=== PATIENT | female | born 1995 | race African-American/Black ===

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

== ENCOUNTER 2017-03-02 15:41 | Emergency (ER) | payer MEDICAID ==
[~2017-03-02] VITALS: Ht 170.2 cm; Wt 60.0 kg
[2017-03-02 15:41] VITALS: BP 124/78; PULSE 85; RESP 15; TEMP 98.7; O2SAT 98
[~2017-03-02 15:41] MED LIST: POLY10O LEFT EYE
[2017-03-02] MEDS ORDERED: CEPH-460 PO (16:25)
--- NOTE | 2017-03-02 16:25 | PD ---
HPI Chief Complaint: Complaint Time Seen by Provider: 16:20 Travel History International Travel<30 days: No Contact w/Intl Traveler<30days: No Traveled to known affect area: No History of Present Illness HPI 21-year-old female presents emergency Department with complaint of urinary frequency, hesitancy, urgency 3 days. Denies dysuria. Denies vaginal discharge, odor, itch. Denies abdominal pain, low back pain, fever, vomiting. Last menstrual period February 16. Has not taken any medications or drainage from his to alleviate her symptoms. No known aggravating or relieving factors. Symptoms are mild in severity. No known allergies. Has no other medical complaints. No other modifying factors or associated signs and symptoms. PFSH Past Medical History ?: Not Social History Alcohol Use: No Tobacco Use: No Allergies-Medications (Allergen,Severity, Reaction): Coded Allergies: No Known Allergies (Unverified , 03/02/17) Reported Meds & Prescriptions Reported Meds & Active Scripts Active Keflex (Cephalexin) 500 Mg Cap 500 Mg PO Q12H 5 Days Review of Systems Except as stated in HPI: all other systems reviewed are Neg Physical Exam Narrative GENERAL: Well-nourished, well-developed black female patient, in no acute distress; afebrile, nontoxic-appearing SKIN: Warm and dry. No rash. HEAD: Atraumatic. Normocephalic. EYES: Pupils equal and round. No scleral icterus. No injection or drainage. ENT: Mucosa pink and moist. NECK: Trachea midline. CARDIOVASCULAR: Regular rate. RESPIRATORY: No accessory muscle use. GASTROINTESTINAL: Abdomen soft, non-tender, nondistended. Hepatic and splenic margins not palpable. Bowel sounds are active 4 quadrants. Bladder with tenderness on palpation; nondistended. MUSCULOSKELETAL: No obvious deformities. No clubbing. No cyanosis. No edema. BACK: No CVA tenderness NEUROLOGICAL: Awake and alert. Oriented 3. No obvious cranial nerve deficits. Motor grossly within normal limits. Normal speech. Moves all extremities. 5/5 strength to all extremities. PSYCHIATRIC: Appropriate mood and affect; insight and judgment normal. Data Data Last Documented VS Vital Signs Date Time Temp Pulse Resp B/P (MAP) Pulse Ox O2 Delivery O2 Flow Rate FiO2 03/02/17 15:41 98.7 85 15 124/78 (93) 98 Orders Orders Urinalysis - C+S If Indicated (03/02/17 16:00) Ed Urine Pregnancytest Poc (03/02/17 16:00) Urine Culture (03/02/17 16:00) Labs Laboratory Tests Test 03/02/17 16:00 Urine Color LIGHT-YELLOW Urine Turbidity CLEAR Urine pH 7.0 Urine Specific [place] 1.005 Urine Protein NEG mg/dL Urine Glucose (UA) NEG mg/dL Urine Ketones NEG mg/dL Urine Occult Blood SMALL Urine Nitrite NEG Urine Bilirubin NEG Urine Urobilinogen LESS THAN 2.0 MG/DL Urine Leukocyte Esterase LARGE Urine RBC 1 /hpf Urine WBC 36 /hpf Urine Squamous Epithelial Cells 1 /hpf Urine Transitional Epithelial Cells 1 /hpf Urine Bacteria RARE /hpf Microscopic Urinalysis Comment CULTURE INDICATED MDM Medical Decision Making Medical Screen Exam Complete: Yes Emergency Medical Condition: Yes Medical Record Reviewed: Yes Differential Diagnosis Urinary tract infection, cystitis, pyelonephritis Narrative Course 21-year-old female with urinary symptoms 3 days. No CVA tenderness. Patient is afebrile and nontoxic appearing. Denies fever, vomiting. UPT negative. Urinalysis ordered. 1641: Urinalysis with signs of infection. Keflex prescribed for home. Instructed patient to follow up with primary care provider. Patient verbalizes understanding and agreement with treatment plan. Patient is medically cleared and stable for discharge. Discussed reasons to return to the emergency department. Patient agrees with treatment plan. The patients vital signs are stable and the patient is stable for outpatient follow-up and treatment. Patient discharged home, stable and in no acute distress. Diagnosis Primary Impression: UTI (urinary tract infection) Qualified Codes: N39.0 - Urinary tract infection, site not specified Referrals: Primary Care Physician Patient Instructions: General Instructions, Urinary Tract Infection in Women ( ED) Additional Instructions: Take antibiotics as prescribed and complete full course Take Pyridium for bladder spasms: Pyridium will turn your urine bright orange Drink plenty of fluids Maintain good personal hygiene Follow-up with primary care provider Return to the emergency department immediately with worsening of symptoms Med/Other Pt SpecificInfo: Prescription(s) given Scripts Phenazopyridine (Pyridium) 100 Mg Tab 100 MG PO Q8H Y for DYSURIA, #10 TAB 0 Refills Prov: Camille Saldivar 03/02/17 Cephalexin (Keflex) 500 Mg Cap 500 MG PO Q12H for Infection for 5 Days, #10 CAP 0 Refills Prov: Camille Saldivar 03/02/17 Disposition: 01 DISCHARGE HOME Condition: Stable Camille Saldivar Mar 02, 2017 16:25
[2017-03-02 16:36] LABS: BACTERIA, URINE RARE /hpf; BLOOD, URINE SMALL (NEG); COMMENT (UR) CULTURE INDICATED; CULTURE IF INDICATED CULTURE INDICATED; GLUCOSE,URINE NEG (NEG); KETONE, URINE NEG (NEG); NITRITE,URINE NEG (NEG); SQUAMOUS EPITHELIAL CELL URINE 1 /hpf (0-5); TRANSITIONAL EPI CELLS, URINE 1 /hpf; URINE COLOR LIGHT-YELLOW (YELLW/STRAW)
[2017-03-02] MEDS ORDERED: PHEN0.4T PO (16:42)
== END 2017-03-02 16:44 | disposition home or self-care (01) ==
LOC: NEPK 15:41
DX: N39.0 Urinary tract infection, site not specified (principal); B96.89 Other specified bacterial agents as the cause of diseases classified elsewhere
CPT/HCPCS: 81001; 84703; 87077; 87086; 87186; 99284